=== PATIENT | female | born 1980 | race Caucasian/White ===

== ENCOUNTER 2021-10-20 18:15 | Observation (INO) ==
[2021-10-20] MEDS ORDERED: Morphine Sulfate 2 MG/ML SYRINGE IVP ONE (20:19)
[2021-10-20] MEDS ORDERED: Ondansetron 4 MG/2 ML VIAL IVP ONE (20:19)
[2021-10-21] MEDS ORDERED: Doxycycline 100 MG in 0.9 % Sodium Chloride Mini Bag 100 ML IVPB ONE (00:37)
[2021-10-21] MEDS ORDERED: cefOXitin 2,000 MG in 0.9 % Sodium Chloride Mini Bag 100 ML IVPB STA (00:45)
[2021-10-21 00:58] LABS: Basophils % 0.4 %; Eosinophils # 0.1 K/mcL (0.0-0.6); Eosinophils % 1.4 %; Hematocrit 36.5 % (35.3-44.9); Hemoglobin 12.4 g/dL (11.5-15.4); Immature Granulocytes % 0.3 % (0-4); Lymphocytes # 3.2 K/mcL (0.6-4.6); Lymphocytes % 32.3 %; Mean Corpuscular Volume 94.3 fL (83.0-100.0); Mean Platelet Volume 10.2 fL (9.4-12.4); Monocytes # 0.6 K/mcL (0.0-1.3); Monocytes % 6.5 %; Neutrophils # 5.8 K/mcL (1.6-8.9); Platelet Count 199 K/mcL (140-400); Red Blood Count 3.87 M/mcL (3.82-4.97); Red Cell Distribution Width 12.5 % (11.5-14.5); Segmented Neutrophils % 59.1 %; White Blood Count 9.8 K/mcL (4.3-11.1)
[2021-10-21 01:11] LABS: BUN/Creatinine Ratio 15 (6-26); Blood Urea Nitrogen 11 mg/dL (6-20); Calcium 8.4 mg/dL (8.6-10.3); Carbon Dioxide 20 mEq/L (23-29); Chloride 109 mEq/L (98-107); Glucose 98 mg/dL (70-105); Osmolality,Calculated 281 (280-300); Potassium 3.7 mEq/L (3.5-5.1); Sodium 136 mEq/L (136-145); eGFR For African Americans > 60 (> 60); eGFR For Non-African Americans > 60 (> 60)
[2021-10-21 02:20] LABS: INR 1.2; Prothrombin Time 13.6 Seconds (9.4-12.1)
[2021-10-21] MEDS ORDERED: *HR* Midazolam HCl 2 MG/2 ML VIAL ONE (11:36)
[2021-10-21] MEDS ORDERED: *HR* FentaNYL (PF) 100 MCG/2 ML VIAL ONE (11:36)
[2021-10-21] MEDS ORDERED: *HR* Propofol 200 MG/20 ML VIAL IVP ONE (11:36)
[2021-10-21] MEDS ORDERED: Lidocaine HCL 4 ML Topical Solution (Laryng-O-Jet Kit Sterile Pak) TP ONE (11:38)
[2021-10-21] MEDS ORDERED: Lidocaine -MPF 2% 5 ML VIAL ONE (11:38)
[2021-10-21] MEDS ORDERED: *HR* Rocuronium Bromide 50 MG/5 ML VIAL ONE (11:38)
[2021-10-21] MEDS ORDERED: Promethazine 6.25 MG in Water for inj. (sterile) 20 ML IVPB PRN (12:07)
[2021-10-21] MEDS ORDERED: Ondansetron 4 MG/2 ML VIAL IVP PRN (12:07)
[2021-10-21] MEDS ORDERED: *HR* OxyCODONE Immed Rel 5 MG TABLET PO PRN (12:07)
[2021-10-21] MEDS ORDERED: *HR* HYDROmorphone PF 0.5 MG/0.5 ML SYRINGE IVP PRN (12:07)
[2021-10-21] MEDS ORDERED: *HR* Belladonna Alkaloids/Opium 30 MG RECTAL SUPPOSITORY RC ONE (12:18)
[2021-10-21] MEDS ORDERED: Bupivacaine-MPF 0.25% 10 ML VIAL ONE (12:18)
[2021-10-21] MEDS ORDERED: Ketorolac 30 MG/ML VIAL ONE (13:13)
[2021-10-21] MEDS ORDERED: Acetaminophen IV 1,000 MG/100 ML BAG IVPB STA (13:15)
[2021-10-21] MEDS ORDERED: *HR* HYDROMORPHONE 2 MG/ML VIAL ONE (13:42)
[2021-10-21 14:20] VITALS: O2SAT 98
[2021-10-21 14:29] VITALS: BP 109/72; PULSE 77; TEMP 97.4
== END 2021-10-21 17:08 | disposition home or self-care (01) ==
LOC: EMEROOARM 18:15 → 3BNU 18:15
PROVIDERS: ADMIT Obstetrics & Gynecology; ATTEND Obstetrics & Gynecology